=== PATIENT | female | born 1960 | race Caucasian/White ===

== ENCOUNTER 2023-02-21 07:42 | Day surgery (SDC) | payer BC ==
[2023-02-18 14:57] VITALS: BMI 27.3
[2023-02-21 09:06] VITALS: TEMP 97.7
[2023-02-21 09:07] VITALS: BP 95/56; PULSE 57; RESP 13
== END 2023-02-21 09:40 | disposition home or self-care (01) ==
LOC: JASU-ENDO 07:42
PROVIDERS: ATTEND Internal Medicine Gastroenterology
PROC: 0DJD8ZZ Inspection of Lower Intestinal Tract, Via Natural or Artificial Opening Endoscopic (ICD-10-PCS; principal; 2023-02-21 08:35)
DX: Z12.11 Encounter for screening for malignant neoplasm of colon (principal); K64.1 Second degree hemorrhoids; K64.8 Other hemorrhoids